=== PATIENT | female | born 1955 ===

== ENCOUNTER 2023-10-19 05:36 | Day surgery (SDC) | payer OTHER ==
[2023-10-12 08:30] LABS: HEMATOCRIT 37.5 % (36.0-45.00); HEMOGLOBIN 13.4 g/dL (12.0-15.00); MEAN CELL VOLUME 87.2 fL (80.00-100.00); MEAN CORPUSCULAR HEMOGLOBIN 31.2 pg (27.00-32.0); MEAN CORPUSCULAR HGB CONC 35.7 g/dl (32.0-36.0); PH,URINE 6.5 (5.0-8.0); PLATELET COUNT 292 K/uL (150-450); RED CELL DISTRIBUTION WIDTH 12.3 % (11.5-14.5); URINE APPEARANCE Clear; URINE BILIRRUBIN Negative (NEGATIVE); URINE BLOOD Negative; URINE COLOR Yellow; URINE LEUKOCYTE Negative; URINE NITRATE Negative; URINE PROTEIN Negative (NEGATIVE); URINE UROBILINOGEN 0.2 E.U./dl
[2023-10-12 08:34] LABS: URINE BACTERIA 74.3 uL (0.0-1933); URINE WBC 5.2 uL (0.0-23.2)
[2023-10-12 08:38] LABS: URINE GLUCOSE 500 MG/DL (NEGATIVE); URINE RBC 1.5 uL (0.0-20.8)
[2023-10-12 09:00] LABS: INR 0.97; PARTIAL THROMBOPLASTIN TIME 27.5 SECONDS (22.0-34.0); PROTHROMBIN TIME 10.2 SECONDS (9.0-11.5)
[2023-10-12 09:03] LABS: ALBUMIN 4.1 gm/dL (3.4-5.0); BILIRUBIN TOTAL 0.35 mg/dL (0.3-1.2); CALCIUM 9.7 mg/dL (8.5-10.1); CREATININE SERUM 1.06 mg/dL (0.55-1.02); GFR 51.4; GLOBULINA 2.9 G/DL (2.4-3.5); POTASSIUM 3.7 mEq/L (3.5-5.1)
[2023-10-19] MEDS ORDERED: CEPHALEXIN500 MG PO (09:10)
== END 2023-10-19 11:25 | disposition home or self-care (01) ==
LOC: CIR.AMB 05:36
PROVIDERS: ATTEND Otolaryngology Otology & Neurotology
DX: H61.321 Acquired stenosis of right external ear canal secondary to inflammation and infection (principal); H91.91 Unspecified hearing loss, right ear; Z91.041 Radiographic dye allergy status; Z88.6 Allergy status to analgesic agent; Z20.822 Contact with and (suspected) exposure to COVID-19